=== PATIENT | female | born 1995 | race African-American/Black ===

== ENCOUNTER 2017-04-27 20:26 | Emergency (ER) | payer BC ==
[~2017-04-27] VITALS: Ht 162.6 cm; Wt 72.6 kg
[2017-04-27 20:45] VITALS: BP 136/90
--- NOTE | 2017-04-27 21:27 | PHYS DOC ---
Past Medical History Past Medical History: No Pertinent History Past Surgical History: No Surgical History Adult General Chief Complaint Chief Complaint: HAND PROBLEM HPI HPI Patient is a 21 year old female presents to the emergency department stating that she was trying to put some paper out of a spiral notebook when the spiral part of the buttock lodged into her right thumb. She states her tetanus immunization is up-to-date. Bleeding is currently controlled. Patient has good sensation to all of her fingers. Patient states she has not taken anything for pain and discomfort. Review of Systems Review of Systems Constitutional: Denies fever or chills [] Eyes: Denies change in visual acuity, redness, or eye pain [] HENT: Denies nasal congestion or sore throat [] Respiratory: Denies cough or shortness of breath [] Cardiovascular: No additional information not addressed in HPI [] GI: Denies abdominal pain, nausea, vomiting, bloody stools or diarrhea [] : Denies dysuria or hematuria [] Musculoskeletal: Denies back pain or joint pain [] Integument: Denies rash or skin lesions. Puncture wound right thumb Neurologic: Denies headache, focal weakness or sensory changes [] Endocrine: Denies polyuria or polydipsia [] Current Medications Current Medications Current Medications Medications (Trade) Dose Ordered Sig/Nadira Start Time Stop Time Status Last Admin Dose Admin Gelatin (Gelfoam Size 12-7mm) 1 each 1X ONCE 04/27/17 22:30 04/27/17 22:31 Ibuprofen (Motrin) 800 mg 1X ONCE 04/27/17 22:00 04/27/17 22:01 DC 04/27/17 21:45 800 MG Lidocaine/Sodium Bicarbonate (Buffered Lidocaine 1%) 20 ml 1X ONCE 04/27/17 22:00 04/27/17 22:01 DC Allergies Allergies Allergies Coded Allergies Type Severity Reaction Last Updated Verified No Known Drug Allergies 04/27/17 No Physical Exam Physical Exam Constitutional: Well developed, well nourished, no acute distress, non-toxic appearance. [] HENT: Normocephalic, atraumatic, bilateral external ears normal, oropharynx moist, no oral exudates, nose normal. [] Eyes: PERRLA, EOMI, conjunctiva normal, no discharge. [] Neck: Normal range of motion, no tenderness, supple, no stridor. [] Cardiovascular:Heart rate regular rhythm, no murmur [] Lungs & Thorax: Bilateral breath sounds clear to auscultation [] Skin: Warm, dry, no erythema, no rash. Puncture wound right thumb. Bleeding controlled at this time. Patient with good sensation noted to the thumb. Back: No tenderness Extremities: No tenderness, no cyanosis, no clubbing, ROM intact, no edema. [] Neurologic: Alert and oriented X 3, normal motor function, normal sensory function, no focal deficits noted. [] Psychologic: Affect normal, judgement normal, mood normal. [] Current Patient Data Vital Signs Vital Signs Date Time Temp Pulse Resp B/P (MAP) Pulse Ox O2 Delivery O2 Flow Rate FiO2 04/27/17 20:45 98.4 99 20 98 Room Air 98.4 EKG EKG [] Radiology/Procedures Radiology/Procedures [] Course & Med Decision Making Course & Med Decision Making Pertinent Labs and Imaging studies reviewed. (See chart for details) Foreign body was noted into the right thumb. 1% lidocaine buffered was injected into the area for digital block. Approximately 6 mL was injected into the area. #11 blade was used to incise the area with 0.75 incision made. Site had bleeding noted with removal of the foreign body. Gelfoam was placed over the site with a sterile dressing. Patient was instructed to keep the area clean and dry do not remove the dressing for the next 24 hours. Tylenol or ibuprofen for pain and discomfort. Patient was instructed to soak the Gelfoam off instead of pulling and off to prevent the removal of clots. Patient was instructed to watch for signs and symptoms of infection such as redness, warmth, tenderness or any yellow/greenish drainage of a come from the site. Patient will be placed on Keflex for potential infection. Recommended follow-up with her primary care physician in the next 3-5 days. Patient agrees with discharge instructions treatment regimens and follow-up recommendations. Signs and symptoms to return back to emergency department was provided. [] Dragon Disclaimer Dragon Disclaimer This electronic medical record was generated, in whole or in part, using a voice recognition dictation system. Departure Departure Impression: Primary Impression: Foreign body of right thumb Disposition: HOME, SELF-CARE Condition: STABLE Referrals: KIAN OZUNA DO (PCP) Patient Instructions: Foreign Body-Brief, Puncture Wound, [id number] Additional Instructions: Keep the area clean and dry. Take the dressing off in the next 24 hours. Make sure you soak the dressing to get the Gelfoam off to prevent clotting from being disrupted. Watch for signs and symptoms of infection. Redness, warmth, tenderness or any yellow/greenish drainage of a come from the site physician occur follow-up to primary care physician immediately. Tylenol or ibuprofen for pain and discomfort. Ice packs on 20 minutes off 20 minutes several times a day. Elevation as much as possible. Follow-up to primary care physician next 3-5 days. Return back to emergency department for signs and symptoms of become worse. Scripts Cephalexin (CEPHALEXIN) 500 Mg Tablet 1 TAB PO BID, #20 TAB Prov: KAVITHA CHRISTENSEN APRN 04/27/17 KAVITHA CHRISTENSEN APRN Apr 27, 2017 21:27
[2017-04-27] MEDS ORDERED: LIDOCAINE 1% / SOD BICARB 8.4% 20 ML VIAL. IJ ONE (22:00)
[2017-04-27] MEDS ORDERED: IBUPROFEN 800 MG TABLET. PO ONE (22:00)
[2017-04-27] MEDS ORDERED: CEPH500T PO (22:14)
[2017-04-27] MEDS ORDERED: GELATIN SPONGE SIZE 12-7MM SPONGE. TP ONE (22:30)
--- NOTE | 2017-04-28 08:18 | RAD ---
Right thumb, 3 views, 04/27/2017: History: Injury, foreign body A wire-like radiopaque foreign body is projected over the soft tissues. This appears to enter the patient along the radial aspect of the mid to distal portion of the proximal phalanx of the thumb. Its distal curved end is projected over the soft tissues along the volar aspect of the IP joint. No underlying fracture or dislocation is identified. IMPRESSION: Radiopaque foreign body in the soft tissues as described above.
== END 2017-04-27 22:17 | disposition home or self-care (01) ==
LOC: ER 20:26
DX: S60.351A Superficial foreign body of right thumb, initial encounter (principal); X58.XXXA Exposure to other specified factors, initial encounter; Y93.89 Activity, other specified; Y92.89 Other specified places as the place of occurrence of the external cause; Y99.8 Other external cause status
CPT/HCPCS: 10120; 73140; 99285-25